=== PATIENT | male | born 1980 | race Caucasian/White ===

== ENCOUNTER 2024-07-23 08:27 | Outpatient (AMB) | payer BC, SELFPAY ==
--- NOTE | 2024-07-23 08:32 | MHC.OFFWIV ---
Intake Vital Signs 07/23/24 08:34 Height 6 ft Weight 198 lb BMI 26.9 BP 130/80 Blood Pressure Location Lt brachial Position Sitting Respiration 16 Pulse 83 Pulse Source Pulse Oximeter Temp 97.8 F Temp Source Oral Pulse Oximetry (%) 98 Oxygen Delivery Method Room Air Intake Visit Reasons: EP Pain/discomfort lower abd, pain rt testicle Intake Note: Pt is here today c/o Rt testicle pain and lower abdominal discomfort x2mo. Allergies No Known Allergies Allergy (Verified 07/23/24 08:34) HPI EP Pain/discomfort lower abd, pain rt testicle HPI Details this is a 44-year-old male patient who presents to the walk-in clinic today with a nearly 2 month history of right scrotal pain and occasional radiation into his right lower quadrant. This began without any inciting events. No testicular trauma. No new sexual partners. Denies risk for STI. Reports tenderness at the top posterior aspect of his right testicle, and in the tube that leads upward. Denies any dysuria or bowel problems. Denies any pain or blood with ejaculation. Reports the abdominal pain as squeezing. Denies fever/chills. [facility] Medical History Overweight (BMI 25.0-29.9) Surgical History No pertinent past surgical history Family History Father No problems noted. Mother No problems noted. Sister In good health Sister In good health Daughter In good health Social History Alcohol intake: current Alcohol intake frequency: a few times a month Alcohol type: beer and hard liquor Review of Systems Const All systems reviewed & are unremarkable except as noted in HPI and below Physical Exam Vital Signs: Last Vital Signs Temp 97.8 F 07/23/24 08:34 Pulse 83 07/23/24 08:34 Resp 16 07/23/24 08:34 BP 130/80 07/23/24 08:34 Pulse Ox 98 07/23/24 08:34 Oxygen Delivery Method Room Air 07/23/24 08:34 BMI result Body Mass Index 26.9 Const General: cooperative, healthy appearing, comfortable and no acute distress GI Inspection: Yes normal to inspection Palpation (GI): Soft to palpation (nontender to palp) and No hepatosplenomegaly present Auscultation: normal bowel sounds General: Yes no CVA tenderness Penis: normal penis Scrotum: testes descended bilaterally and Varicocele present on the right Testes: epididymal tenderness on the right Back/Spine/Pelvis Back: no CVA tenderness Skin General skin exam: no rashes or lesions noted Extrem General: Yes no clubbing, cyanosis or edema Psych Appearance: grossly normal Mental Status: mental status grossly normal Speech and movement: Normal speech and movement present Results AMB Urinalysis, Automated UA Leukoctes 0 Juan/uL Last Edit by Allan Johnson CMA on 07/23/24 09:29 UA Nitrite Negative Last Edit by Allan Johnson CMA on 07/23/24 09:29 UA Urobilinogen 0.2 mg/dL Last Edit by Allan Johnson CMA on 07/23/24 09:29 UA Protein 0 mg/dL Last Edit by Allan oJhnson CMA on 07/23/24 09:29 UA pH 6.0 Last Edit by Allan Johnson CMA on 07/23/24 09:29 UA Blood 0 Artie/uL Last Edit by Allan Johnson CMA on 07/23/24 09:29 UA Specific [place] 1.005 Last Edit by Allan Johnson CMA on 07/23/24 09:29 UA Ketone Positive Last Edit by Allan Johnson CMA on 07/23/24 09:29 UA Bilirubin 0 mg/dL Last Edit by Allan Johnson CMA on 07/23/24 09:29 UA Glucose 0 mg/dL Last Edit by Allan Johnson CMA on 07/23/24 09:29 Assessment & Plan Assessment & Plan (1) Pain in right testicle: Code(s): N50.811 - Right testicular pain Plan: Possible varicocele on the right side versus epididymitis, however less risk for this. Clean catch was negative. Denies STI risk. Abdominal assessment was unremarkable. He is between PCPs at the moment and is hoping to get established with PCP with [facility] office. I will refer him to urology. In the meantime I will start him on Bactrim to see if this provides any benefit. Reviewed indications, use, possible side effects of this. We reviewed that if symptoms worsen, he should go to the emergency department for evaluation. All questions were answered and patient verbalizes understanding and agrees to plan. Orders: Orders AMB Urinalysis Automated Today Z13.9 - Encounter for screening, unspecified Referrals Urology Referral N50.811 - Right testicular pain Medications: New sulfamethoxazole-trimethoprim 800-160 mg 1 tab PO BID 7 days 14 tabs 0RF N50.811 - Right testicular pain Coding Level of Care Code Est Pt Level 4 (33761) Diagnoses Pain in right testicle N50.811
[2024-07-23 08:34] VITALS: BP 130/80; PULSE 83; RESP 16; TEMP 36.6; O2SAT 98; BMI 26.9
== END 2024-07-23 09:54 | disposition home or self-care (01) ==
PROVIDERS: PCP Internal Medicine; Visit Provider Nurse Practitioner Family
DX: N50.811 Right testicular pain (principal); Z13.9 Encounter for screening, unspecified

== ENCOUNTER → 2024-07-23 08:27 | Outpatient (BNVA) | payer BC, SELFPAY | PROVIDERS: PCP Internal Medicine; Visit Provider Nurse Practitioner Family | DX: N50.811 Right testicular pain (principal) | CPT/HCPCS: 81003 ==

== ENCOUNTER 2024-08-25 14:04 | Outpatient (AMB) | payer BC, SELFPAY ==
--- NOTE | 2024-08-25 14:29 | A.OFFPC_ITS ---
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 Accompanied by: Self / Same As Patient Allergies No Known Allergies Allergy (Verified 08/25/24 15:28) Medication List - Last Reconciled 08/25/24 by Deedee Nick PA-C multivitamin 1 tab PO DAILY Tobacco use date assessed: 08/25/24 Dental Screening Dental Screen Date: 08/25/24 Did you have a dental visit in the last 12 months?: Yes Did you have a dental problem in the last 6 months where you did not have access to dental care?: No Was dental information given to patient?: Patient has dentist HPI Establish Care HPI Details The patient is a 44-year-old male presenting to establish a new primary care provider and for new patient appointment along with an annual physical examination. Patient presents with right testicular pain persisting for two months. The character of the pain is described as slight pressure with occasional pinching sensation, aggravating when wearing a belt around the affected area. The patient has previously been on Bactrim, following which he experienced loose stools. There are no systemic symptoms or noticeable changes in the testicular region. The patient has a family history of breast cancer but none for testicular cancer. Social History - Employment: Works in a [employer], [employer] mostly desk work. - Physical Activity: Engages in gardenin g and manual tasks at home. - Family Status: Single, not currently s exually active, previously with women. - Family History: Father had breast canc er; possible maternal grandmother's breast cancer. - No current use of recreational drugs o r tobacco. [facility] Medical History (Updated 08/25/24 @ 15:35 by Deedee Nick PA-C) Overweight with body mass index (BMI) of 27 to 27.9 in adult Loose stools Family history of cataracts Family history of breast cancer Right calf pain Right lower quadrant abdominal pain Establishing care with new doctor, encounter for Right testicular pain Overweight (BMI 25.0-29.9) Surgical History No pertinent past surgical history Family History Father Breast cancer Mother Cataract Sister In good health Sister In good health Daughter In good health Maternal Grandmother Breast cancer Social History Housing: House Alcohol intake: current Alcohol intake frequency: holidays/special occasions only Patient Tobacco Use Status: Former Tobacco user Tobacco use type: Cigarette e-Cigarette/Vaping Use: Currently Using service: No Current occupational status: employed Cognitive needs: No Hearing needs: No Vision needs: Yes (rx glasses) Questionnaire PHQ-9 Over the last 2 weeks, how often have you been bothered by any of the following problems? 1. Little interest or pleasure in doing things: not at all 2. Feeling down, depressed, or hopeless: not at all 3. Trouble falling or staying asleep, or sleeping too much: not at all 4. Feeling tired or having little energy: not at all 5. Poor appetite or overeating: not at all 6. Feeling bad about yourself - or that you are a failure or have let yourself or your family down: not at all 7. Trouble concentrating on things, such as reading the newspaper or watching television: not at all 8. Moving or speaking so slowly that other people could have noticed. Or the opposite - being so fidgety or restless that you have been moving around a lot more than usual: not at all 9. Thoughts that you would be better off or of hurting yourself in some way: not at all Total score: 0 Depression Screening Interpretation: Negative Depression Screening Done: Yes 01875 - PHQ-9 Billing: Yes Source: Developed by Drs. Marcin Roe, Heidy Rivera, Sean Ling and colleagues, with an educational fara from [employer]. Thrive Questionnaire Date Thrive assessed: 08/25/24 I am a: Patient What is your living situation today?: I have a steady place to live Within the past 12 months, did the food you bought not last and you didn't have the money to get more?: Never true Within the past 12 months, did you worry whether your food would run out before you got money to buy more?: Never true Do you have trouble paying for medicines?: No Do you have trouble getting transportation to medical appointments?: No Do you have trouble paying your heating and electricity bill?: No Do you have trouble taking care of your child, family member or friend?: No Do you have trouble with day-to-day activities such as bathing, preparing meals, shopping, managing finances, etc.?: No Are you currently unemployed and looking for a job?: No Are you interested in more education?: No Please select the resources that you would like help with: None THRIVE Score: 0 AUDIT C Alcohol Use Questionnaire (AUDIT-C) 1. How often do you have a drink containing alcohol?: 2-4 times a month 2. How many drinks containing alcohol do you have on a typical day when you are drinking?: 1 or 2 3. How often do you have six or more drinks on one occasion?: Never Total Score: 2 Score Reviewed/Action Taken: No SHAVONNE-7 AMB Questionnaire SHAVONNE-7 Date SHAVONNE - 7 assessed: 08/25/24 Feeling nervous, anxious, or on edge: 0 = Not at all Not being able to stop or control worryin = Not at all Worrying too much about different things: 0 = Not at all Trouble relaxin = Not at all Being so restless that it is hard to sit still: 0 = Not at all Becoming easily annoyed or irritable: 0 = Not at all Feeling afraid as if something awful might happen: 0 = Not at all Total SHAVONNE-7 score (0-4 normal; 5-9 mild; 10-14 moderate; 15-21 severe): 0 Source: Developed by Drs. Marcin Roe, Heidy Rivera, Sean Ling and colleagues, with an educational fara from [employer]. SHAVONNE-7 Assessment Billing SHAVONNE-7 Assessment Tool: SHAVONNE-7 Assessment 20913 Review of Systems Const Details: - Genitourinary: Reports right testicular pain. Denies abnormal penile discharge or swelling of testicles. - Gastrointestinal: Reports loose stools post-antibiotics. Denies nausea, vomiting, green or mucusy stool. - General: Denies fever and abdominal pain. Physical exam (Primary Care) Vital Signs: Last Vital Signs Temp 97.7 F 08/25/24 14:30 Pulse 82 08/25/24 14:30 Resp 14 08/25/24 14:30 BP 132/82 08/25/24 14:30 Pulse Ox 99 08/25/24 14:30 Oxygen Delivery Method Room Air 08/25/24 14:30 Care Plan Goal for BP management: <140/90 at Goal BMI result Body Mass Index 27.3 BMI Assessment/Plan discussion: High BMI High, discussed plan: lifestyle, weight reduction, dietary, physical activity and alcohol moderation Tobacco/Smoking Status: Tobacco use Status Tobacco use date assessed 08/25/24 08/25/24 14:33 Patient Tobacco Use Status Former Tobacco user 08/25/24 14:43 Tobacco use type Cigarette 08/25/24 14:43 e-Cigarette/Vaping Use Currently Using 08/25/24 14:43 PHQ-9: PHQ-9 Score PHQ-9: Total score 0 08/25/24 14:43 Depression Screening Interpretation: Negative Thrive Assessment: Date of Thrive Assessment Date Thrive assessed 08/25/24 08/25/24 14:33 Const Other: Appearance: Alert. Oriented X3. No acute distress. Head: Normal external exam. Normocephalic. Atraumatic. Eyes: Pupils are equal, round, and reactive to light. Extraocular movements intact. Conjunctiva and sclera normal. Eyelids normal. Ears: External auditory canal normal. Tympanic membranes normal. Throat: Pharynx normal. Uvula midline. Moist mucous membranes. Neck: Normal inspection. Neck supple. Full range of motion. No adenopathy. Thyroid Normal. No meningeal signs. No neck mass noted. Cardiovascular: Normal heart rate and rhythm. Heart sound normal. No murmurs noted. Pulses normal throughout. Respiratory: No respiratory distress. Painless inspiration. Breath sounds normal. No wheezes/rales/rhonchi noted. Chest nontender. No accessory muscle usage noted or decreased air movement noted. Abdomen: Soft and nontender. Bowel sounds normal in all 4 quadrants. No distention noted. No organomegaly noted. No visible injury noted. Patient reports intermittent right lower quadrant abdominal tenderness/right groin/inguinal area although on exam there is no tenderness. No obvious hernias or abnormalities noted at this time. Gu: Patient has a normal testicular exam has mild tenderness to the right testicle although no masses or abnormalities noted. No rashes are noted. No abnormal discharge. No lymphadenopathy noted. No obvious hernias noted. Back: No costovertebral angle tenderness. Full range of motion noted. Skin: Skin warm and dry. Normal skin color. Normal skin turgor. No rashes/lesions/lacerations noted. Extremities: No lower extremity edema. Right calf pain noted, with visible veins. Otherwise all other extremities exhibit normal range of motion nontender. Neuro: Oriented X 3. No motor deficit. No sensory deficit. Reflexes normal. Results Reviewed Results Reviewed: - Tests and Diagnostics: - Urine analysis: Positive for ketones, negative for nitrites. - Blood Tests: Negative for hepatitis B, hepatitis C, HIV, RPR. Coding Level of Care Code Est Pt Level 4 (16911) Est Pt Prev Care 40-64y(94095) Diagnoses Establishing care with new doctor, encounter for Z76.89 Annual physical exam Z00.00 Right testicular pain N50.811 Loose stools R19.5 Family history of breast cancer Z80.3 Overweight with body mass index (BMI) of 27 to 27.9 in adult E66.3; Z68.27 Right calf pain M79.661 Right lower quadrant abdominal pain R10.31 Additional Codes PHQ-9 - 54405 - PHQ-9 Billing: Yes ([id number]) SHAVONNE-7 Assessment Billing - SHAVONNE-7 Assessment Tool: SHAVONNE-7 Assessment 11805 ([id number]) Assessment & Plan Assessment & Plan (1) Establishing care with new doctor, encounter for: Code(s): Z76.89 - Persons encountering health services in other specified circumstances Category: Medical Plan: Patient establishing care with a new primary care provider his old prior primary care provider was Dr. Pop although he has not seen him in over 3 years. (2) Annual physical exam: Code(s): Z00.00 - Encounter for general adult medical examination without abnormal findings Category: Medical (3) Right testicular pain: Code(s): N50.811 - Right testicular pain Category: Medical Plan: Evaluation includes scrotal ultrasound and consultation for potential varicocele versus epididymitis versus another abnormality. Also concerned due to the patient's intermittent right lower quadrant pain although no pain on exam. Abdomen/Pelvic CT scan is also ordered to assess related structures. Will reassess after labs and imaging are performed and patient will return in 2 months. Referral to Urology also placed at this time. (4) Loose stools: Code(s): R19.5 - Other fecal abnormalities Category: Medical Plan: Started after taking Bactrim. Denies mucousy or yellow stools. Denies history of C diff. Will send for H pylori and C diff infection. Will continue to monitor. (5) Family history of breast cancer: Code(s): Z80.3 - Family history of malignant neoplasm of breast Category: Medical Plan: Father and maternal grandmother had breast cancer. Patient does not have any breast related complaints or lumps on exam at this time. (6) Overweight with body mass index (BMI) of 27 to 27.9 in adult: Code(s): E66.3 - Overweight; Z68.27 - Body mass index [BMI] 27.0-27.9, adult Category: Medical Plan: Patient to improve diet and exercise regimen. Condition is chronic and stable continue to monitor. (7) Right calf pain: Code(s): M79.661 - Pain in right lower leg Category: Medical Plan: Will order venous duplex ultrasound of right lower extremity to evaluate for possible DVT. Most likely related to varicose veins versus musculature in nature. Condition is chronic and stable continue to monitor. (8) Right lower quadrant abdominal pain: Code(s): R10.31 - Right lower quadrant pain Category: Medical Plan: Evaluation includes scrotal ultrasound and consultation for potential varicocele versus epididymitis versus another abnormality. Also concerned due to the patient's intermittent right lower quadrant pain although no pain on exam. Abdomen/Pelvic CT scan is also ordered to assess related structures. Will reassess after labs and imaging are performed and patient will return in 2 m [facility]. Referral to Urology also placed at this time. Plan Plan Patient was informed and verbally consented to the use of an ambient scribe for clinic note documentation during this visit. 1. Right Testicular Pain Evaluation includes ultrasound and consultation for potential varicocele. Pelvic CT scan is also ordered to assess related structures. 2. Varicocele Suspected varicocele on the right side requires confirmation through ultrasound and possibly contributes to the patient's discomfort. 3. Loose Stools Post Antibiotics Continued monitoring advised, with suggestions for further tests if symptoms do not resolve. 4. Family History Of Breast Cancer Patient's family history of breast cancer is recorded, with relevance to ongoing health surveillance. I informed the patient that his right testicular pain and suspected varicocele warranted further evaluation through imaging studies. The ultrasound aims to confirm a varicocele and assess for any infection, while the CT scan will review potential abdominal contributions to his symptoms. We discussed that a varicocele can cause discomfort due, in part, to dilated scrotal veins, and intervention, if necessary, could involve surgical options. The loose stools following antibiotics are likely a side effect, but symptoms will be monitored to ensure resolution. The patient's negative results for hepatitis B, hepatitis C, and HIV provide reassurance. We talked about the family history of breast cancer, emphasizing the importance of awareness for personal health monitoring. I advised regular follow-ups to reassess his symptoms or consider additional evaluation should new symptoms arise. Future imaging studies were recommended on an urgent basis. Follow-up visits within two months were suggested for re- evaluation. Orders: Orders Liver Panel Today Z00.00 - Encounter for general adult medical examination without abnormal findings Hemoglobin A1c Today Z00.00 - Encounter for general adult medical examination without abnormal findings C Reactive Protein Today Z00.00 - Encounter for general adult medical examination without abnormal findings PSA,Total (Free>4and<10) Today Z00.00 - Encounter for general adult medical examination without abnormal findings Erythrocyte Sedimentation Rate Today Z00.00 - Encounter for general adult medical examination without abnormal findings Comprehensive Met. Panel Today Z00.00 - Encounter for general adult medical examination without abnormal findings CT NG by PCR Today N50.811 - Right testicular pain, Z76.89 - Persons encountering health services in other specified circumstances US venous duplex LE RT Today M79.661 - Pain in right lower leg CDiff Gene PCR Today R10.9 - Unspecified abdominal pain Complete Blood Count Auto Diff Today Z00.00 - Encounter for general adult medical examination without abnormal findings Lipid Panel Today Z00.00 - Encounter for general adult medical examination without abnormal findings Vitamin B12 and Folate Today Z00.00 - Encounter for general adult medical examination without abnormal findings Vitamin D 25-OH Total Today Z00.00 - Encounter for general adult medical examination without abnormal findings Magnesium Today Z00.00 - Encounter for general adult medical examination without abnormal findings US scrotum doppler Today N50.811 - Right testicular pain, R10.31 - Right lower quadrant pain CT abdomen pelvis w IV con Today N50.811 - Right testicular pain, R10.31 - Right lower quadrant pain H pylori Ag Stool Today R10.31 - Right lower quadrant pain Referrals Urology Referral N50.811 - Right testicular pain Patient Instructions: - Schedule and undergo the ultrasound for the right testicle and CT scan of the abdomen and pelvis. - Obtain blood work at your earliest convenience; fasting is recommended for cholesterol testing. - Monitor your condition and alert us if worsened stomach pain, unusual testicular changes, or prolonged loose stools occur. - Follow up in two months for evaluation of progress and potential management adjustment. - Maintain awareness of family history concerning breast cancer and discuss any concerns in future visits. - Drink water before fasting labs and contact us if you need further guidance on your instructions.
[2024-08-25 14:30] VITALS: BP 132/82; PULSE 82; RESP 14; TEMP 36.5; O2SAT 99; BMI 27.3
--- OUTSIDE RECORDS SUMMARY | 2024-08-25 16:07 | XMS_ITS ---
Author Name [facility] Organization Unknown History of Medication Use Medication Directions Dispensed Refills Start Date End Date Stat No known medications No known medications active Encounters Encounter Type Encounter Reason Primary Diagnosis Location Date Ambulatory Titers Encounter for screening for other viral diseases [facility] 08/13/2024 Care Team Organization Name Specialty Phone Email Start Date End Da te [facility] NO PCP Primary Care 08/13
== END 2024-08-25 15:11 | disposition home or self-care (01) ==
LOC: HO.HMCSH 14:04
PROVIDERS: PCP Internal Medicine; Visit Provider Physician Assistant Medical
DX: Z00.00 Encounter for general adult medical examination without abnormal findings (principal); N50.811 Right testicular pain; E66.3 Overweight; M79.661 Pain in right lower leg; Z68.27 Body mass index [BMI] 27.0-27.9, adult; R19.5 Other fecal abnormalities; R10.31 Right lower quadrant pain; Z76.89 Persons encountering health services in other specified circumstances; Z80.3 Family history of malignant neoplasm of breast

== ENCOUNTER → 2024-08-25 14:04 | Outpatient (BNVA) | payer BC, SELFPAY | PROVIDERS: PCP Internal Medicine; Visit Provider Physician Assistant Medical | DX: Z00.00 Encounter for general adult medical examination without abnormal findings (principal); N50.811 Right testicular pain; R19.5 Other fecal abnormalities; E66.3 Overweight; M79.661 Pain in right lower leg; R10.31 Right lower quadrant pain; Z68.27 Body mass index [BMI] 27.0-27.9, adult; Z80.3 Family history of malignant neoplasm of breast; Z76.89 Persons encountering health services in other specified circumstances | CPT/HCPCS: 96127 ==

== ENCOUNTER 2024-08-26 07:39 | Outpatient (REF) | payer BC, SELFPAY ==
[2024-08-26 07:56] LABS: MANUAL DIFF FLAG NO
[2024-08-26 08:17] LABS: Basophils Percent Auto 0.7 % (0-2); Eosinophils Percent Auto 0.5 % (0-4); Hematocrit 43.3 % (42.0-52.0); Hemoglobin 14.7 g/dl (14.0-18.0); Imm Gran Abs Auto 0.02 X10*3/uL (0.00-0.03); Imm Gran Pct Auto 0.4 % (0.0-0.4); Lymphocytes Absolute Auto 1.6 X10*3/uL (1.2-4.9); Lymphocytes Percent Auto 28.2 % (20-40); Mean Corpuscular HGB Conc 33.9 g/dl (31.0-36.0); Mean Corpuscular Hemoglobin 29.7 pg (27.0-33.0); Mean Corpuscular Volume 87.5 fL (80.0-98.0); Mean Platelet Volume 9.5 fL (9.4-12.4); Monocytes Absolute Auto 0.5 X10*3/uL (0.1-1.2); Monocytes Percent Auto 8.5 % (2-11); Neutrophils Absolute Auto 3.4 x10*3/uL (2.0-8.3); Neutrophils Percent Auto 61.7 % (45-73); Platelet Count 255 X10*3/uL (160-400); Red Blood Count 4.95 X10*6/uL (4.60-5.80); Red Cell Distribution Width 12.3 % (11.0-16.0); White Blood Count 5.6 X10*3/uL (4.8-10.8)
[2024-08-26 08:24] LABS: Estimated Average Glucose 103 mg/dL; Hemoglobin A1c % 5.2 % (<6.0)
[2024-08-26 08:50] LABS: Alanine Aminotransferase 22 U/L (0-40); Albumin Level 5.2 g/dL (3.5-5.0); Alkaline Phosphatase 55 U/L (39-117); Anion Gap 12 (12-20); Aspartate Amino Transferase 23 U/L (5-37); Bilirubin Direct 0.1 mg/dL (0.0-0.5); Bilirubin Total 0.4 mg/dL (0.0-1.0); Blood Urea Nitrogen 16 mg/dL (9-16); C Reactive Protein 0.11 mg/dL (< or = 0.50); Carbon Dioxide 24 mmol/L (22-29); Chloride 108 mmol/L (96-108); Cholesterol 145 mg/dL (<200); Estimated Glomerular Filt Rate > 60; Glucose Random 97 mg/dL (60-115); HDL Cholesterol 40 mg/dL (>40); LDL Cholesterol Calculated 94 mg/dL (<100); Magnesium 2.1 mg/dL (1.6-2.6); Potassium 4.3 mmol/L (3.3-5.1); Sodium 140 mmol/L (135-145); Total Protein 7.1 g/dL (6.5-8.0); Triglycerides 55 mg/dL (<150)
[2024-08-26 08:58] LABS: Erythrocyte Sedimentation Rate 2 MM/HR (0-15)
[2024-08-26 09:07] LABS: Vitamin D 25-OH Total 28.9 ng/mL (>30)
[2024-08-26 09:08] LABS: PSA,Total (Free>4and<10) 2.13 ng/mL (0.00-4.00)
[2024-08-26 09:22] LABS: Folate 7.4 ng/mL (> or = 4.0); Vitamin B12 396 pg/mL (200-900)
[2024-08-26 11:55] LABS: CT PCR NOT DETECTED (Not Detect.); NG PCR NOT DETECTED (Not Detect.)
== END 2024-08-26 07:40 | disposition home or self-care (01) ==
LOC: HO.LAB 07:39
PROVIDERS: PCP Physician Assistant Medical; Visit Provider Physician Assistant Medical
DX: Z00.00 Encounter for general adult medical examination without abnormal findings (principal); Z12.5 Encounter for screening for malignant neoplasm of prostate; Z13.6 Encounter for screening for cardiovascular disorders; Z13.1 Encounter for screening for diabetes mellitus; N50.811 Right testicular pain; Z76.89 Persons encountering health services in other specified circumstances; Z20.2 Contact with and (suspected) exposure to infections with a predominantly sexual mode of transmission
CPT/HCPCS: 80053; 80061; 82248; 82306; 82607; 82746; 83036; 83735; 84153; 85025; 85652; 86140; 87491; 87591

== ENCOUNTER 2024-09-01 14:17 | Outpatient (REF) | payer BC, SELFPAY ==
--- NOTE | ~2024-09-01 | US_ITS ---
EXAMINATION: US TRIPLEX LOWER EXTREMITY, RIGHT CLINICAL INFORMATION: Right leg pain, notably in right posterior mid calf COMPARISON: None available. TECHNIQUE: Color-flow triplex imaging with spectral analysis and compression Doppler were performed on the right lower extremity. FINDINGS: Respiratory variation, normal compression and augmented flow are noted throughout the right lower extremity. The visualized common femoral vein, superficial femoral vein, profunda femoral vein, popliteal vein and midcalf peroneal and posterior tibial venous segments show no evidence of deep venous thrombosis. There is no Martinez's cyst. In the region of pain in the right posterior mid calf, there is a bulging superior saphenous varicosity measuring 0.3 cm. It is compressible. US/US venous duplex LE RT IMPRESSION: No evidence of deep venous thrombosis involving the right lower extremity. Electronically signed by: John Alvarado MD 09/01/2024 03:17 PM EDT
== END 2024-09-01 14:18 | disposition home or self-care (01) ==
LOC: HO.US 14:17
PROVIDERS: PCP Physician Assistant Medical; Visit Provider Physician Assistant Medical
DX: M79.661 Pain in right lower leg (principal)
CPT/HCPCS: 93971

== ENCOUNTER → 2024-09-01 14:18 | Outpatient (BNV) | payer BC, SELFPAY | PROVIDERS: PCP Physician Assistant Medical; Visit Provider Radiology Diagnostic Radiology | DX: M79.604 Pain in right leg (principal) | CPT/HCPCS: 93971 ==

== ENCOUNTER 2024-09-21 08:20 | Outpatient (REF) | payer BC, SELFPAY ==
--- NOTE | ~2024-09-21 | CT_ITS ---
EXAMINATION: CT ABDOMEN AND PELVIS WITH CONTRAST CLINICAL INFORMATION: Right lower quadrant pain. COMPARISON: None available. TECHNIQUE: Multidetector volumetric images were obtained from the superior aspect of the liver through the pubic symphysis following administration 85 mL of Omnipaque 350 intravenous contrast. Sagittal and coronal reformatted images were obtained on the technologist's workstation. Oral contrast: [address] examination was performed using dose optimization techniques as appropriate, variously including the following: *Automated exposure control *Adjustment of mA and/or kV according to patient size (this includes techniques or standardized protocols for targeted exams where dose is matched to indication/reason for exam; i.e. extremities or head) *Use of iterative reconstruction technique DLP: 552 mGy centimeter. FINDINGS: LUNG BASES: No acute airspace disease. LIVER, GALLBLADDER, AND BILIARY TREE: Liver measures 15 cm. No focal mass. Portal veins, hepatic veins and intrahepatic portion of the IVC are patent. No pericholecystic fluid collection or gallbladder wall thickening. No intrahepatic or extrahepatic biliary ductal dilatation. PANCREAS: No focal mass. No peripancreatic fluid collection. No main pancreatic ductal dilatation. SPLEEN: 9 cm. No focal lesion. ADRENAL GLANDS: No nodular lesion. KIDNEYS AND URETERS: Subcentimeter cyst, left kidney. No renal mass. No hydronephrosis or gross nephrolithiasis. Normal gas pattern of the renal cortex. BLADDER: Fluid-filled. GASTROINTESTINAL TRACT: Appendix is normal. No intestinal obstruction pattern. No pneumatosis intestinalis. No pneumoperitoneum. No intestinal wall thickening. No ascites. No pneumoperitoneum. No peripheral enhancing fluid collection, peritoneal cavity. ABDOMINAL WALL: Small fat-containing umbilical hernia. LYMPH NODES: No lymphadenopathy, mesenteric or retroperitoneal. VASCULAR: Calcified plaques distal abdominal aorta wall. No aneurysm or dissection, abdominal aorta. PELVIC VISCERA: No enlargement of the prostate gland. . OSSEOUS STRUCTURES: Sacralized vertebra labeled L5. Spina bifida occulta, S1. No acute fracture or gross listhesis. Prominent left transverse processes of L5. No lytic or blastic lesions. CT/CT abdomen pelvis w IV con IMPRESSION: Appendix is normal. Small fat-containing umbilical hernia. Fleischner guidelines were followed. Electronically signed by: Favian Robertson MD 09/21/2024 11:16 AM EDT
--- OUTSIDE RECORDS SUMMARY | 2024-09-21 08:23 | XMS_ITS ---
Author Name [facility] Organization Unknown History of Medication Use Medication [...]
[2024-09-21] MEDS: Barium Sulfate Oral (Mocha) 450 ML ORAL.SUSP 900 ML PO (11:01)
[2024-09-21] MEDS: iohexoL 350 MG/ML 100 ML INFUS..BTL 85 ML IV (11:03)
== END 2024-09-21 08:21 | disposition home or self-care (01) ==
LOC: HO.CT 08:20
PROVIDERS: PCP Physician Assistant Medical; Visit Provider Physician Assistant Medical
DX: R10.31 Right lower quadrant pain (principal); N50.811 Right testicular pain
CPT/HCPCS: 74177; Q9967

== ENCOUNTER → 2024-09-21 08:21 | Outpatient (BNV) | payer BC, SELFPAY | PROVIDERS: PCP Physician Assistant Medical; Visit Provider Radiology Diagnostic Radiology | DX: K42.9 Umbilical hernia without obstruction or gangrene (principal) | CPT/HCPCS: 74177 ==

== ENCOUNTER 2024-10-18 15:29 | Outpatient (REF) | payer BC, SELFPAY ==
--- NOTE | ~2024-10-18 | US_ITS ---
EXAMINATION: US SCROTUM HISTORY: N50.811 - Right testicular pain. COMPARISON: There are no prior studies available for comparison. FINDINGS: Real-time grayscale ultrasound imaging of the scrotum was performed. RIGHT TESTICLE: The right testis measures 5.0 x 2.5 x 3.3 cm and demonstrates normal homogeneous echotexture. No masses are seen. The right testis demonstrates normal color Doppler flow. RIGHT EPIDIDYMIS: Normal in size, shape, and vascularity. There is a cyst in the epididymal head measuring 3 mm in size. LEFT TESTICLE: The left testis measures 5.1 x 2.4 x 3.1 cm and demonstrates normal homogeneous echotexture. No masses are seen. The left testis demonstrates normal color Doppler flow. LEFT EPIDIDYMIS: Normal in size, shape, and vascularity. VARICOCELE: None. HYDROCELE: No significant hydrocele is seen. OTHER COMMENTS: None. US/US scrotum IMPRESSION: 3 mm right epididymal head cyst. Otherwise unremarkable scrotal ultrasound. Electronically signed by: Marcin Ayoub MD 10/19/2024 07:06 AM EDT
== END 2024-10-18 15:30 | disposition home or self-care (01) ==
LOC: HO.US 15:29
PROVIDERS: PCP Physician Assistant Medical; Visit Provider Physician Assistant Medical
DX: N50.811 Right testicular pain (principal)
CPT/HCPCS: 76870

== ENCOUNTER → 2024-10-18 15:31 | Outpatient (BNV) | payer BC, SELFPAY | PROVIDERS: PCP Physician Assistant Medical; Visit Provider Radiology Diagnostic Radiology | DX: N50.3 Cyst of epididymis (principal) | CPT/HCPCS: 76870 ==

== ENCOUNTER 2024-10-20 12:56 | Outpatient (AMB) | payer BC, SELFPAY ==
--- NOTE | 2024-10-20 12:57 | A.OFFVIS_ITS ---
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 Pain occurs primarily when sitting and subsides with movement. Ultrasound indicated a possible epididymal cyst. Intermittent tenderness due to epididymal irritation, common with age. Advised to wear supportive underwear to prevent discomfort from horizontal testicular lie. Urinary Symptoms Review Results - Ultrasound: Possible epididymal cyst on the testicle [facility] Medical History (Updated 08/26/24 @ 11:59 by Deedee Nick PA-C) Vitamin D deficiency Overweight with body mass index (BMI) of 27 to 27.9 in adult Loose stools Family history of cataracts Family history of breast cancer Right calf pain Right lower quadrant abdominal pain Establishing care with new doctor, encounter for Right testicular pain Overweight (BMI 25.0-29.9) Surgical History No pertinent past surgical history Family History Father Breast cancer Mother Cataract Sister In good health Sister In good health Daughter In good health Maternal Grandmother Breast cancer Social History Housing: House Alcohol intake: current Alcohol intake frequency: holidays/special occasions only Patient Tobacco Use Status: Former Tobacco user Tobacco use type: Cigarette e-Cigarette/Vaping Use: Currently Using service: No Current occupational status: employed Cognitive needs: No Hearing needs: No Vision needs: Yes (rx glasses) Review of Systems Const Denies chills and Denies fever(s) Card Reports no additional complaints and Denies syncope Resp Denies cough GI Denies abdominal pain and Denies heartburn Reports as per HPI and Denies change in libido Neuro Denies syncope Psych Denies change in libido Endo Denies change in libido Physical Exam Const General: cooperative, healthy appearing, comfortable and no acute distress Orientation/consciousness: patient oriented x3 HEENT Face and sinus: Yes normal facial exam Mouth: moist mucous membranes Neck Neck: Yes normal visual inspection, Yes full ROM and Yes trachea midline Chest Chest palpation & inspection: normal inspection of the chest Resp Effort & Inspection: normal respiratory effort, able to speak in complete sentences and no respiratory distress GI Inspection: Yes normal to inspection Back/Spine/Pelvis Cervical Spine: normal cervical lordosis Thoracic/Lumbar Spine: thoracic and lumbar spine normal to inspection Skin General skin exam: no rashes or lesions noted Neuro General: patient oriented x3, gait normal, tone normal and moves all extremities Extrem General: Yes normal to inspection and Yes capillary refill normal Assessment & Plan Assessment & Plan (1) Right testicular pain: Code(s): N50.811 - Right testicular pain Category: Medical Plan Plan Patient informed verbally consented to the use of an ambient scribe 1. Epididymal Cyst On The Testicle - Monitor condition; no significant pain reported. - Use supportive underwear to reduce discomfort. 2. Irritation Of The Epididymis - Reassured patient about age-related commonality. - Recommended supportive underwear to prevent irritation. Discussion Notes I discussed with the patient that the ultrasound showed a possible epidermal cyst, which is not concerning at this time. I explained that the irritation of the epididymis is common with age and advised wearing supportive underwear to alleviate discomfort. The patient was reassured and advised to monitor the condition, seeking further evaluation if symptoms worsen. Patient Instructions - Wear supportive underwear to reduce discomfort. - Monitor symptoms and seek further evaluation if pain increases or changes. Patient Instructions: This note is constructed using voice recognition software. While every effort has been made to ensure accuracy sand sifter errors may have been included. Imaging studies, laboratory and physical exam results were discussed and reviewed in detail. No major barriers to patient understanding were identified. An opportunity to ask questions regarding the treatment plan was provided. All questions were answered. The patient expressed understanding and agreement with the above treatment plan. The patient is aware they should contact our office by phone for worsening of their current condition or the appearance of new urologic symptoms. Compliance is encouraged with any medications and followup testing that is ordered. It is a privilege to participate in the urologic care of your patient. If you have any questions or concerns regarding treatment for the above conditions, or other urologic issues, please do not hesitate to contact me. The office telephone contact is [phone]. Sincerely, Dr Alberto Pfeiffer MD, [facility] - Urology Compassionate Specialist Care for the Genitourinary System Coding Level of Care Code New Pt Level 3 (57899) Diagnoses Right testicular pain N50.811
== END 2024-10-20 13:18 | disposition home or self-care (01) ==
LOC: HO.HUSH 12:57
PROVIDERS: PCP Physician Assistant Medical; Visit Provider Urology
DX: N50.811 Right testicular pain (principal)
CPT/HCPCS: 99203

== ENCOUNTER → 2024-10-20 12:56 | Outpatient (BNVA) | payer BC, SELFPAY | PROVIDERS: PCP Physician Assistant Medical; Visit Provider Urology | DX: N50.811 Right testicular pain (principal); N50.3 Cyst of epididymis; K42.9 Umbilical hernia without obstruction or gangrene; N28.1 Cyst of kidney, acquired; E55.9 Vitamin D deficiency, unspecified; I70.90 Unspecified atherosclerosis; L72.9 Follicular cyst of the skin and subcutaneous tissue, unspecified; D22.9 Melanocytic nevi, unspecified; Z13.31 Encounter for screening for depression | CPT/HCPCS: 96127 ==

== ENCOUNTER 2024-10-20 14:13 | Outpatient (AMB) | payer BC, SELFPAY ==
--- NOTE | 2024-10-20 14:12 | A.OFFPC_ITS ---
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 The patient reports persistent testicular pain, which has remained unchanged since the last visit. An ultrasound revealed a small epididymal cyst, and the patient was advised to monitor the condition and use supportive underwear to alleviate discomfort. The patient has an umbilical hernia, which is not currently causing significant discomfort. The hernia was identified during a CT scan, and surgical intervention was discussed as a future option if symptoms worsen. A renal cyst was identified on the left kidney, measuring less than one centimeter. The patient was advised to monitor for any changes in symptoms, such as pain or urinary issues. The patient has a history of vitamin D deficiency, with recent lab results confirming low levels. Dietary intake of vitamin D-rich foods was discussed, and the patient acknowledged inconsistent use of supplements. Calcified plaques were noted in the distal abdominal aorta, likely related to dietary habits. The patient was advised on the potential benefits of aspirin therapy. Multiple skin cysts and moles were observed, with a recommendation for dermatological evaluation due to irregularities in some moles. Social History - Diet: Patient reports poor dietary hab its, despite normal cholesterol levels. - Vitamin intake: Inconsistent use of mu ltivitamins, particularly vitamin D supplements. [facility] Medical History (Updated 10/20/24 @ 15:03 by Deedee Nick PA-C) Preventative health care Calcified atheromatous plaque Renal cyst Umbilical hernia Epididymal cyst Cyst of skin Numerous moles Vitamin D deficiency Overweight with body mass index (BMI) of 27 to 27.9 in adult Loose stools Family history of cataracts Family history of breast cancer Right calf pain Right lower quadrant abdominal pain Establishing care with new doctor, encounter for Right testicular pain Overweight (BMI 25.0-29.9) Surgical History No pertinent past surgical history Family History Father Breast cancer Mother Cataract Sister In good health Sister In good health Daughter In good health Maternal Grandmother Breast cancer Social History Housing: House Alcohol intake: current Alcohol intake frequency: holidays/special occasions only Patient Tobacco Use Status: Former Tobacco user Tobacco use type: Cigarette e-Cigarette/Vaping Use: Currently Using service: No Current occupational status: employed Cognitive needs: No Hearing needs: No Vision needs: Yes (rx glasses) Questionnaire PHQ-9 Over the last 2 weeks, how often have you been bothered by any of the following problems? 1. Little interest or pleasure in doing things: not at all 2. Feeling down, depressed, or hopeless: not at all 3. Trouble falling or staying asleep, or sleeping too much: not at all 4. Feeling tired or having little energy: not at all 5. Poor appetite or overeating: not at all 6. Feeling bad about yourself - or that you are a failure or have let yourself or your family down: not at all 7. Trouble concentrating on things, such as reading the newspaper or watching television: not at all 8. Moving or speaking so slowly that other people could have noticed. Or the opposite - being so fidgety or restless that you have been moving around a lot more than usual: not at all 9. Thoughts that you would be better off or of hurting yourself in some way: not at all Total score: 0 Depression Screening Interpretation: Negative Depression Screening Done: Yes 47820 - PHQ-9 Billing: Yes Source: Developed by Drs. Marcin Roe, Heidy Rivera, Sean Ling and colleagues, with an educational fara from [employer]. Thrive Questionnaire Date Thrive assessed: 08/25/24 I am a: Patient What is your living situation today?: I have a steady place to live Within the past 12 months, did the food you bought not last and you didn't have the money to get more?: Never true Within the past 12 months, did you worry whether your food would run out before you got money to buy more?: Never true Do you have trouble paying for medicines?: No Do you have trouble getting transportation to medical appointments?: No Do you have trouble paying your heating and electricity bill?: No Do you have trouble taking care of your child, family member or friend?: No Do you have trouble with day-to-day activities such as bathing, preparing meals, shopping, managing finances, etc.?: No Are you currently unemployed and looking for a job?: No Are you interested in more education?: No Please select the resources that you would like help with: None THRIVE Score: 0 AUDIT C Alcohol Use Questionnaire (AUDIT-C) 1. How often do you have a drink containing alcohol?: 2-4 times a month 2. How many drinks containing alcohol do you have on a typical day when you are drinking?: 1 or 2 3. How often do you have six or more drinks on one occasion?: Never Total Score: 2 Score Reviewed/Action Taken: No SHAVONNE-7 AMB Questionnaire SHAVONNE-7 Date SHAVONNE - 7 assessed: 08/25/24 Feeling nervous, anxious, or on edge: 0 = Not at all Not being able to stop or control worryin = Not at all Worrying too much about different things: 0 = Not at all Trouble relaxin = Not at all Being so restless that it is hard to sit still: 0 = Not at all Becoming easily annoyed or irritable: 0 = Not at all Feeling afraid as if something awful might happen: 0 = Not at all Total SHAVONNE-7 score (0-4 normal; 5-9 mild; 10-14 moderate; 15-21 severe): 0 Source: Developed by Drs. Marcin Roe, Heidy Rivera, Sean Ling and colleagues, with an educational fara from [employer]. SHAVONNE-7 Assessment Billing SHAVONNE-7 Assessment Tool: SHAVONNE-7 Assessment 50169 Review of Systems Const Details: - Genitourinary: Reports persistent testicular pain. Denies erectile dysfunction or urinary issues. - Gastrointestinal: Denies abdominal pain or changes in bowel habits. All systems reviewed & are unremarkable except as noted in HPI and below Physical exam (Primary Care) Vital Signs: Last Vital Signs Temp 98.2 F 10/20/24 14:13 Pulse 82 10/20/24 14:13 Resp 16 10/20/24 14:13 BP 123/69 10/20/24 14:13 Pulse Ox 99 10/20/24 14:13 Oxygen Delivery Method Room Air 10/20/24 14:13 Care Plan Goal for BP management: <140/90 at Goal BMI result Body Mass Index 27.9 BMI Assessment/Plan discussion: High BMI High, discussed plan: lifestyle, weight reduction, dietary, physical activity and alcohol moderation Tobacco/Smoking Status: Tobacco use Status Tobacco use date assessed 10/20/24 10/20/24 14:17 Patient Tobacco Use Status Former Tobacco user 10/20/24 14:17 Tobacco use type Cigarette 10/20/24 14:17 e-Cigarette/Vaping Use Currently Using 10/20/24 14:17 PHQ-9: PHQ-9 Score PHQ-9: Total score 0 10/20/24 14:17 Depression Screening Interpretation: Negative Thrive Assessment: Date of Thrive Assessment Date Thrive assessed 08/25/24 10/20/24 14:17 Const Other: Appearance: Alert. Oriented X3. No acute distress. Head: Normal external exam. Normocephalic. Atraumatic. Eyes: Pupils are equal, round, and reactive to light. Extraocular movements intact. Conjunctiva and sclera normal. Eyelids normal. Throat: Pharynx normal. Uvula midline. Moist mucous membranes. Neck: Normal inspection. Neck supple. Full range of motion. Cardiovascular: Normal heart rate and rhythm. Heart sound normal. No murmurs noted. Pulses normal throughout. Respiratory: No respiratory distress. Painless inspiration. Breath sounds normal. No wheezes/rales/rhonchi noted. Chest nontender. No accessory muscle usage noted or decreased air movement noted. Abdomen: Soft and nontender. No distention noted. No organomegaly noted. Small fat-containing umbilical hernia noted. Back: Full range of motion noted. Skin: Skin warm and dry. Normal skin color. Normal skin turgor. Numerous moles and cysts noted, some moles appear irregular. Extremities: Extremities exhibit normal range of motion. Neuro: Oriented X 3. No motor deficit. No sensory deficit. Reflexes normal. Results Reviewed Results Reviewed: - Labs: CBC normal, albumin slightly elevated at 5.2, total cholesterol 145 mg/dL, HDL 40 mg/dL, vitamin D low. - Imaging: Ultrasound showed a small epididymal cyst; CT scan revealed a small umbilical hernia and a subcentimeter renal cyst. Coding Level of Care Code Est Pt Level 4 (09473) Complex EM visit Add On G2211 Diagnoses Epididymal cyst N50.3 Umbilical hernia K42.9 Renal cyst N28.1 Vitamin D deficiency E55.9 Calcified atheromatous plaque I70.90 Cyst of skin L72.9 Numerous moles D22.9 [facility] health care Z00.00 Additional Codes SHAVONNE-7 Assessment Billing - SHAVONNE-7 Assessment Tool: SHAVONNE-7 Assessment 87832 ([id number]) PHQ-9 - 89567 - PHQ-9 Billing: Yes ([id number]) Assessment & Plan Assessment & Plan (1) Epididymal cyst: Code(s): N50.3 - Cyst of epididymis Category: Medical Plan: The patient is advised to monitor the epididymal cyst and use supportive underwear to alleviate discomfort. If the cyst becomes painful or increases in size, further evaluation may be necessary. (2) Umbilical hernia: Code(s): K42.9 - Umbilical hernia without obstruction or gangrene Category: Medical Plan: The umbilical hernia is currently asymptomatic, and surgical intervention is not required unless symptoms develop. The patient should monitor for any changes in size or discomfort. (3) Renal cyst: Code(s): N28.1 - Cyst of kidney, acquired Category: Medical Plan: The renal cyst is small and asymptomatic, requiring no immediate intervention. The patient should report any new symptoms such as pain or urinary changes. (4) Vitamin D deficiency: Code(s): E55.9 - Vitamin D deficiency, unspecified Category: Medical Plan: The patient is encouraged to increase dietary intake of vitamin D and consider consistent use of supplements. Follow-up labs may be necessary to reassess vitamin D levels. (5) Calcified atheromatous plaque: Comment: In distal abdominal aorta Code(s): I70.90 - Unspecified atherosclerosis Category: Medical Plan: The presence of calcified plaques suggests atherosclerosis, and the patient is advised to consider aspirin therapy. Lifestyle modifications, including dietary changes, may also be beneficial. (6) Cyst of skin: Code(s): L72.9 - Follicular cyst of the skin and subcutaneous tissue, unspecified Category: Medical Plan: The patient is referred to dermatology for evaluation of skin cysts and moles, particularly those with irregular borders. Regular skin checks are recommended to monitor for any changes. (7) Numerous moles: Code(s): D22.9 - Melanocytic nevi, unspecified Category: Medical Plan: The patient is referred to dermatology for evaluation of skin cysts and moles, particularly those with irregular borders. Regular skin checks are recommended t o monitor for any changes. (8) Preventative health care: Code(s): Z00.00 - Encounter for general adult medical examination without abnormal findi ngs Category: Medical Plan: The patient is advised to undergo a colonoscopy as part of routine screening for colon cancer, starting at age 45. Alternative screening methods such as Cologuard were discussed, but colonoscopy remains the gold standard. Plan Plan Patient was informed and verbally consented to the use of an ambient scribe for clinic note documentation during this visit. 1. Epididymal Cyst The patient is advised to monitor the epididymal cyst and use supportive underwear to alleviate discomfort. If the cyst becomes painful or increases in size, further evaluation may be necessary. 2. Umbilical Hernia The umbilical hernia is currently asymptomatic, and surgical intervention is not required unless symptoms develop. The patient should monitor for any changes in size or discomfort. 3. Renal Cyst The renal cyst is small and asymptomatic, requiring no immediate intervention. The patient should report any new symptoms such as pain or urinary changes. 4. Vitamin D Deficiency The patient is encouraged to increase dietary intake of vitamin D and consider consistent use of supplements. Follow-up labs may be necessary to reassess vitamin D levels. 5. Calcified Plaques In Distal Abdominal Aorta The presence of calcified plaques suggests atherosclerosis, and the patient is advised to consider aspirin therapy. Lifestyle modifications, including dietary changes, may also be beneficial. 6. Multiple Skin Cysts And Moles The patient is referred to dermatology for evaluation of skin cysts and moles, particularly those with irregular borders. Regular skin checks are recommended to monitor for any changes. 7. Preventative Care: Colon Cancer Screening With Colonoscopy The patient is advised to undergo a colonoscopy as part of routine screening for colon cancer, starting at age 45. Alternative screening methods such as Cologuard were discussed, but colonoscopy remains the gold standard. During the visit, we discussed the management of the epididymal cyst, emphasizing the use of supportive underwear and monitoring for changes. The umbilical hernia was reviewed, with surgical options considered if symptoms develop. We also addressed the renal cyst, advising the patient to report any new symptoms. Vitamin D deficiency was discussed, with recommendations for dietary adjustments and potential supplementation. The presence of calcified plaques in the abdominal aorta was noted, and the potential benefits of aspirin therapy were considered. A referral to dermatology was made for evaluation of skin cysts and moles. We discussed colon cancer screening options, with a recommendation for colonoscopy as the preferred method. Orders: Referrals Dermatology Referral D22.9 - Melanocytic nevi, unspecified, L72.9 - Follicular cyst of the skin and subcutaneous tissue, unspecified Patient Instructions: - Monitor the epididymal cyst for changes in size or discomfort. - Use supportive underwear to alleviate testicular discomfort. - Observe the umbilical hernia for any changes in size or symptoms. - Report any new symptoms related to the renal cyst, such as pain or urinary changes. - Increase dietary intake of vitamin D and consider taking supplements regularly. - Consider aspirin therapy for calcified plaques in the abdominal aorta, and make dietary changes as needed. - Schedule a dermatology appointment for evaluation of skin cysts and moles. - Plan for a colonoscopy as part of routine colon cancer screening starting at age 45.
[2024-10-20 14:13] VITALS: BP 123/69; PULSE 82; RESP 16; TEMP 36.8; O2SAT 99; BMI 27.9
== END 2024-10-20 14:41 | disposition home or self-care (01) ==
LOC: HO.HMCSH 14:13
PROVIDERS: PCP Physician Assistant Medical; Visit Provider Physician Assistant Medical
DX: N50.3 Cyst of epididymis (principal); K42.9 Umbilical hernia without obstruction or gangrene; N28.1 Cyst of kidney, acquired; E55.9 Vitamin D deficiency, unspecified; I70.90 Unspecified atherosclerosis; L72.9 Follicular cyst of the skin and subcutaneous tissue, unspecified; D22.9 Melanocytic nevi, unspecified; Z00.00 Encounter for general adult medical examination without abnormal findings

== ENCOUNTER 2025-01-27 10:12 | Emergency (ER) | payer BC, SELFPAY ==
--- NOTE | ~2025-01-27 | XR_ITS ---
EXAMINATION: XR CHEST CLINICAL INFORMATION: chest pain COMPARISON: None available. TECHNIQUE: 2 views of the chest were obtained. FINDINGS: The cardiomediastinal silhouette is within normal limits. The lungs are well expanded. There is no focal consolidation, edema, or effusion. No pneumothorax. No acute osseous abnormality. XR/XR chest 2V IMPRESSION: No acute cardiopulmonary findings Electronically signed by: Patric Oviedo MD 01/27/2025 10:53 AM [facility]
--- NOTE | 2025-01-27 10:13 | ECG_ITS ---
Test Reason : chest pain Blood Pressure : */* mmHG Vent. Rate : 103 BPM Atrial Rate : 103 BPM P-R Int : 158 ms QRS Dur : 88 ms QT Int : 332 ms P-R-T Axes : 54 68 45 degrees QTcB Int : 434 ms Sinus tachycardia Otherwise normal ECG When compared with ECG of 11-Jul-2005 18:22, No significant change was found Referred By: Generic ED Physician Electronically Signed By: SAHRA CHRISTENSEN MD
[2025-01-27 10:18] VITALS: BP 137/84; PULSE 107; RESP 18; TEMP 36.3; O2SAT 100; BMI 25.6
--- NOTE | 2025-01-27 10:22 | ED_ITS ---
HPI - General Adult General Chief complaint: Arrhythmia/Palpitations Stated complaint: rapid heart beat Time Seen by Provider: 01/27/25 11:47 Related Data Home Medications ?Medication ?Instructions ?Recorded ?Confirmed multivitamin 1 tab PO DAILY 03/06/20 08/0 09/08 Allergies Allergy/AdvReac Type Severity Reaction Status Date / Time No Known Allergies Allergy Verified 01/27/25 10:22 PMFSH Past Medical History Medical History Preventative health care Calcified atheromatous plaque Renal cyst Umbilical hernia Epididymal cyst Cyst of skin Numerous moles Vitamin D deficiency Overweight with body mass index (BMI) of 27 to 27.9 in adult Loose stools Family history of cataracts Family history of breast cancer Right calf pain Right lower quadrant abdominal pain Establishing care with new doctor, encounter for Right testicular pain Overweight (BMI 25.0-29.9) Surgical History No pertinent past surgical history Family History Family History Father Breast cancer Mother Cataract Sister In good health Sister In good health Daughter In good health Maternal Grandmother Breast cancer Social History Social History Housing: House Alcohol intake: current Alcohol intake frequency: holidays/special occasions only Patient Tobacco Use Status: Former Tobacco user Tobacco use type: Cigarette Smoked in Last 30 Days: Yes e-Cigarette/Vaping Use: Currently Using Use of substances other than those prescribed or required for medical reasons: Yes Substance Use Type: Marijuana Substance Use Frequency: Occasionally Advance Directives: No Advance Directives Information Provided: Yes service: No Current occupational status: employed Cognitive needs: No Hearing needs: No Vision needs: Yes (rx glasses) Physical Exam ED Vital Signs: Vital Signs - 24 hr 01/27/25 10:18 01/27/25 10:47 01/27/25 11:04 Temperature 97.4 F 97.4 F Pulse Rate 107 H 99 95 Respiratory Rate 18 20 18 Blood Pressure 137/84 150/102 H 135/94 H Pulse Oximetry 100 98 96 Oxygen Delivery Method Room Air Room Air Room Air 01/27/25 13:34 Temperature 97.9 F Pulse Rate 60 Respiratory Rate 18 Blood Pressure 113/80 Pulse Oximetry 98 Oxygen Delivery Method Room Air BMI result Body Mass Index 25.6 Course Course Course Narrative: RME: 44 yold male presents to the ED for heart pounding off and on the past 2 days. patient states no recent travel, surgery, or leg swelling. labs, EKG, and chest xray ordered Medical Decision Making Lab Data 01/27/25 10:27 01/27/25 10:27 Labs: Lab Results 01/27/25 01/27/25 Range/Units 10:27 12:30 WBC 6.7 (4.8-10.8) X10*3/uL RBC 5.07 (4.60-5.80) X10*6/uL Hgb 14.9 (14.0-18.0) g/dl Hct 44.4 (42.0-52.0) % MCV 87.6 (80.0-98.0) fL MCH 29.4 (27.0-33.0) pg MCHC 33.6 (31.0-36.0) g/dl RDW 12.5 (11.0-16.0) % Plt Count 251 (160-400) X10*3/uL MPV 9.2 L (9.4-12.4) fL Immature Gran % (Auto) 0.4 (0.0-0.4) % Neut % (Auto) 73.0 (45-73) % Lymph % (Auto) 18.3 L (20-40) % [place] % (Auto) 7.3 (2-11) % Eos % (Auto) 0.4 (0-4) % Baso % (Auto) 0.6 (0-2) % Lymph # (Auto) 1.2 (1.2-4.9) X10*3/uL [place] # (Auto) 0.5 (0.1-1.2) X10*3/uL Eos # (Auto) 0.0 (0.0-0.4) X10*3/uL Baso # (Auto) 0.0 (0.0-0.2) X10*3/uL Abs Immat Gran (auto) 0.03 (0.00-0.03) X10*3/uL Absolute Neuts (auto) 4.9 (2.0-8.3) x10*3/uL Absolute Nucleated RBC 0.000 (0.0-0.012) X10*3/uL Nucleated RBC % (auto) 0.0 (0.0-0.2) /100WBC PT 12.0 (11.2-13.5) SEC INR 1.0 (0.9-1.1) APTT 32.0 (26.7-34.1) SEC D-Dimer High Sensitivty < 150 NG/ML Sodium 143 (135-145) mmol/L Potassium 4.0 (3.3-5.1) mmol/L Chloride 109 H (96-108) mmol/L Carbon Dioxide 25 (22-29) mmol/L Anion Gap 13 (12-20) BUN 12 (9-16) mg/dL Creatinine 0.88 (0.5-1.4) mg/dL Estim Creat Clear Calc 117.5 Estimated GFR > 60 Random Glucose 96 (60-115) mg/dL Calcium 9.3 (8.4-10.2) mg/dL Magnesium 2.0 (1.6-2.6) mg/dL Total Bilirubin 0.6 (0.0-1.0) mg/dL AST 19 (5-37) U/L ALT 23 (0-40) U/L Alkaline Phosphatase 66 (39-117) U/L Troponin I High Sens < 2.7 < 2.7 (<3.5-35.0) ng/L NT-Pro-B Natriuret Pep 24.5 (<300) pg/mL Total Protein 7.3 (6.5-8.0) g/dL Albumin 5.2 H (3.5-5.0) g/dL Discharge Plan Discharge Clinical Impression: Heart palpitations Patient Disposition: Home, Self-Care Instructions: Heart Palpitations (ED) Prescriptions: No Action multivitamin Tablet 1 tab PO DAILY Referrals: Deedee Nick PA-C [Primary Care Provider, Internal Medicine] Stand Alone Forms: Work/School Release Print Language: Slovak
[2025-01-27 10:33] LABS: MANUAL DIFF FLAG NO
[2025-01-27 10:35] LABS: Hematocrit 44.4 % (42.0-52.0); Hemoglobin 14.9 g/dl (14.0-18.0); Imm Gran Abs Auto 0.03 X10*3/uL (0.00-0.03); Imm Gran Pct Auto 0.4 % (0.0-0.4); Lymphocytes Absolute Auto 1.2 X10*3/uL (1.2-4.9); Mean Corpuscular HGB Conc 33.6 g/dl (31.0-36.0); Mean Corpuscular Hemoglobin 29.4 pg (27.0-33.0); Mean Corpuscular Volume 87.6 fL (80.0-98.0); NRBC Abs Auto 0.000 X10*3/uL (0.0-0.012); NRBC Pct Auto 0.0 /100WBC (0.0-0.2); Platelet Count 251 X10*3/uL (160-400); Red Blood Count 5.07 X10*6/uL (4.60-5.80); White Blood Count 6.7 X10*3/uL (4.8-10.8)
[2025-01-27 10:44] LABS: INTERNATIONAL NORM RATIO 1.0 (0.9-1.1); Prothrombin Time 12.0 SEC (11.2-13.5)
[2025-01-27 10:47] VITALS: BP 150/102; PULSE 99; RESP 20; TEMP 36.3; O2SAT 98
[2025-01-27 10:47] LABS: Partial Thromboplastin Time 32.0 SEC (26.7-34.1)
[2025-01-27 11:01] LABS: NT Pro B Type Natriuretic Pept 24.5 pg/mL (<300)
[2025-01-27 11:04] VITALS: BP 135/94; PULSE 95; RESP 18; O2SAT 96
[2025-01-27 11:04] LABS: Troponin-I High Sensitivity < 2.7 ng/L (<3.5-35.0)
[2025-01-27 11:10] LABS: Alanine Aminotransferase 23 U/L (0-40); Albumin Level 5.2 g/dL (3.5-5.0); Alkaline Phosphatase 66 U/L (39-117); Anion Gap 13 (12-20); Aspartate Amino Transferase 19 U/L (5-37); Blood Urea Nitrogen 12 mg/dL (9-16); Calcium 9.3 mg/dL (8.4-10.2); Carbon Dioxide 25 mmol/L (22-29); Chloride 109 mmol/L (96-108); Creatinine Clr Calc Pharmacy 117.5; Estimated Glomerular Filt Rate > 60; Potassium 4.0 mmol/L (3.3-5.1); Sodium 143 mmol/L (135-145); Total Protein 7.3 g/dL (6.5-8.0)
--- NOTE | 2025-01-27 11:10 | PC.NURSE ---
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
--- NOTE | 2025-01-27 12:01 | ED_ITS ---
HPI - Arrhythmia/Palpitations General Chief Complaint: Arrhythmia/Palpitations Stated Complaint: rapid heart beat Time Seen by Provider: 01/27/25 11:47 Source: patient Mode of arrival: ambulatory Limitations: no limitations History of Present Illness ED Provider: DR. Walker HPI narrative: 44-year-old male otherwise healthy came in for evaluation of feeling palpitation and feeling the whole body is pulsating, no chest pain, No shortness of breath, no recent travel, extremity swelling or tenderness, no history of excessive caffeine use, declined recreational drug use, or alcohol use. Fever, no chills. Related Data Home Medications ?Medication ?Instructions ?Recorded ?Confirmed multivitamin 1 tab PO DAILY 03/06/20 08/0 09/08 Allergies Allergy/AdvReac Type Severity Reaction Status Date / Time No Known Allergies Allergy Verified 01/27/25 10:22 Review of Systems 2 Review of Systems: all other systems are reviewed and are negative Constitutional: Reports as per HPI and Reports no additional constitutional complaints Eyes: Reports as per HPI and Reports no additional eye complaints Reports system reviewed and no additional complaints, except as documented Cardiovascular: Reports as per HPI and Reports no additional cardiovascular complaints Respiratory: Reports as per HPI and Reports no additional respiratory complaints Gastrointestinal: Reports as per HPI and Reports no additional gastrointestinal complaints Genitourinary: Reports no additional female genitourinary complaints Musculoskeletal: Reports no additional musculoskeletal complaints Skin/Breast: Reports system reviewed and no additional complaints, except as docu Psychiatric: Reports no additional psychiatric complaints Endocrine: Reports no additional endocrine complaints Hematologic/Lymphatic: Reports no additional hematologic/lymphatic complaints Allergic/Immunologic: Reports no additional allergic/immunologic complaints Reports system reviewed and no additional complaints, except as documented and Reports Abnormal speech present [facility] Past Medical History Medical History Preventative health care Calcified atheromatous plaque Renal cyst Umbilical hernia Epididymal cyst Cyst of skin Numerous moles Vitamin D deficiency Overweight with body mass index (BMI) of 27 to 27.9 in adult Loose stools Family history of cataracts Family history of breast cancer Right calf pain Right lower quadrant abdominal pain Establishing care with new doctor, encounter for Right testicular pain Overweight (BMI 25.0-29.9) Surgical History No pertinent past surgical history Family History Family History Father Breast cancer Mother Cataract Sister In good health Sister In good health Daughter In good health Maternal Grandmother Breast cancer Social History Social History Housing: House Alcohol intake: current Alcohol intake frequency: holidays/special occasions only Patient Tobacco Use Status: Former Tobacco user Tobacco use type: Cigarette Smoked in Last 30 Days: Yes e-Cigarette/Vaping Use: Currently Using Use of substances other than those prescribed or required for medical reasons: Yes Substance Use Type: Marijuana Substance Use Frequency: Occasionally Advance Directives: No Advance Directives Information Provided: Yes service: No Current occupational status: employed Cognitive needs: No Hearing needs: No Vision needs: Yes (rx glasses) Physical Exam 2 Vital Signs: Vital Signs: Last Vital Signs Temp 97.9 F 01/27/25 13:34 Pulse 60 01/27/25 13:34 Resp 18 01/27/25 13:34 BP 113/80 01/27/25 13:34 Pulse Ox 98 01/27/25 13:34 O2 Del Method Room Air 01/27/25 13:34 BMI result Body Mass Index 25.6 Vital signs have been reviewed and appear to be correct. Blood pressure elevated. Heart rate normal. Respiratory rate normal. Temperature normal. Oxygen saturation normal. Appearance: Alert. Oriented X3. No acute distress. Head: Normal external exam. Normocephalic. Atraumatic. No [place] signs noted. No raccoon eyes noted Eyes: PERRLA. EOMI. Conjunctiva and sclera normal. Eyelids normal. ENT: TM's Normal. Pharynx normal. Uvula midline. Moist mucous membranes. No trismus noted. No drooling noted. No muffled voice noted. Neck: Normal inspection. Neck supple. FROM. No adenopathy. Thyroid Normal. No meningeal signs. No neck mass noted. CVS: Normal heart rate and rhythm. Heart sound normal. No murmurs noted. Pulses normal throughout. Respiratory: No respiratory distress. Painless inspiration. Breath sounds normal. No wheezes/rales/rhonchi noted. Chest nontender. No accessory muscle usage noted or decreased air movement noted. Abdomen: Soft and nontender. Bowel sounds normal in all 4 quadrants. No distention noted. No organomegaly noted. No visible injury noted. Back: No CVA tenderness. Full range of motion noted. Skin: Skin warm and dry. Normal skin color. Normal skin turgor. No rashes/lesions/lacerations noted. Extremities: No lower extremity edema. Extremities exhibit normal range of motion. Extremities nontender. Neuro: Oriented X 3. Cranial nerve exam: II-XII are grossly intact No motor deficit. No sensory deficit. Reflexes normal. Course Reevaluation(s) Reevaluation #1: 44-year-old male otherwise healthy presented with palpitation that it resolved on its own, reassuring workup in the ED today with no clear etiology for patient palpitation will reassure the patient and discharge to with sewer and cutter finger buff material to consider cardiac monitoring if symptoms persist. Time: 14:00 Medical Decision Making Differential Diagnosis Differential Diagnoses: The differential diagnosis associated with the presentation includes ( ACS, pulmonary embolism, dysrhythmia, electrolyte derangement, severe anemia, ACS, substance induced palpitation.) Admission/Observation Consideration of admission/observation: Escalation of care including admission/observation considered Lab Data MDM Lab Attestation statement: I reviewed the patient's lab results. 01/27/25 10:27 01/27/25 10:27 Labs: Lab Results 01/27/25 01/27/25 Range/Units 10:27 12:30 WBC 6.7 (4.8-10.8) X10*3/uL RBC 5.07 (4.60-5.80) X10*6/uL Hgb 14.9 (14.0-18.0) g/dl Hct 44.4 (42.0-52.0) % MCV 87.6 (80.0-98.0) fL MCH 29.4 (27.0-33.0) pg MCHC 33.6 (31.0-36.0) g/dl RDW 12.5 (11.0-16.0) % Plt Count 251 (160-400) X10*3/uL MPV 9.2 L (9.4-12.4) fL Immature Gran % (Auto) 0.4 (0.0-0.4) % Neut % (Auto) 73.0 (45-73) % Lymph % (Auto) 18.3 L (20-40) % [place] % (Auto) 7.3 (2-11) % Eos % (Auto) 0.4 (0-4) % Baso % (Auto) 0.6 (0-2) % Lymph # (Auto) 1.2 (1.2-4.9) X10*3/uL [place] # (Auto) 0.5 (0.1-1.2) X10*3/uL Eos # (Auto) 0.0 (0.0-0.4) X10*3/uL Baso # (Auto) 0.0 (0.0-0.2) X10*3/uL Abs Immat Gran (auto) 0.03 (0.00-0.03) X10*3/uL Absolute Neuts (auto) 4.9 (2.0-8.3) x10*3/uL Absolute Nucleated RBC 0.000 (0.0-0.012) X10*3/uL Nucleated RBC % (auto) 0.0 (0.0-0.2) /100WBC PT 12.0 (11.2-13.5) SEC INR 1.0 (0.9-1.1) APTT 32.0 (26.7-34.1) SEC D-Dimer High Sensitivty < 150 NG/ML Sodium 143 (135-145) mmol/L Potassium 4.0 (3.3-5.1) mmol/L Chloride 109 H (96-108) mmol/L Carbon Dioxide 25 (22-29) mmol/L Anion Gap 13 (12-20) BUN 12 (9-16) mg/dL Creatinine 0.88 (0.5-1.4) mg/dL Estim Creat Clear Calc 117.5 Estimated GFR > 60 Random Glucose 96 (60-115) mg/dL Calcium 9.3 (8.4-10.2) mg/dL Magnesium 2.0 (1.6-2.6) mg/dL Total Bilirubin 0.6 (0.0-1.0) mg/dL AST 19 (5-37) U/L ALT 23 (0-40) U/L Alkaline Phosphatase 66 (39-117) U/L Troponin I High Sens < 2.7 < 2.7 (<3.5-35.0) ng/L NT-Pro-B Natriuret Pep 24.5 (<300) pg/mL Total Protein 7.3 (6.5-8.0) g/dL Albumin 5.2 H (3.5-5.0) g/dL Independent Interpretation I performed an independent interpretation of an: EKG ( Sinus tachycardia at 103, normal intervals, no ST-T changes, no significant change from prior EKG.) and Plain X-Ray ( Chest: No acute pathology.) Radiology Impression Discussion of test interpretation with radiology: I have reviewed the radiologist's reading. Discharge Plan Discharge Clinical Impression: Heart palpitations Patient Disposition: Home, Self-Care Instructions: Heart Palpitations (ED) Prescriptions: No Action multivitamin Tablet 1 tab PO DAILY Referrals: Deedee Nick PA-C [Primary Care Provider, Internal Medicine] Pancho Plummer MD [Physician, Cardiology] Stand Alone Forms: Work/School Release Print Language: [place]
[2025-01-27 12:06] LABS: D Dimer High Sensitivity < 150 NG/ML
[2025-01-27 12:15] LABS: Magnesium 2.0 mg/dL (1.6-2.6)
[2025-01-27 12:57] LABS: Troponin-I High Sensitivity < 2.7 ng/L (<3.5-35.0)
[2025-01-27 13:34] VITALS: BP 113/80; PULSE 60; RESP 18; TEMP 36.6; O2SAT 98
[2025-01-27 14:17] VITALS: BP 113/80; PULSE 60; RESP 18; TEMP 36.6; O2SAT 98
== END 2025-01-27 14:18 | disposition home or self-care (01) ==
PROVIDERS: Physician Assistant; Emergency Provider Emergency Medicine; PCP Physician Assistant Medical
DX: I49.9 Cardiac arrhythmia, unspecified (principal); R00.2 Palpitations; R06.82 Tachypnea, not elsewhere classified; Z79.899 Other long term (current) drug therapy
CPT/HCPCS: 36415; 71046; 80053; 83735; 83880; 84484; 85025; 85379; 85610; 85730; 93005; 99284; 99285

== ENCOUNTER → 2025-01-27 10:13 | Outpatient (BNV) | payer BC, SELFPAY | PROVIDERS: Emergency Provider Emergency Medicine; PCP Physician Assistant Medical; Visit Provider Internal Medicine Cardiovascular Disease | DX: R00.0 Tachycardia, unspecified (principal) | CPT/HCPCS: 93010 ==

== ENCOUNTER → 2025-01-27 10:21 | Outpatient (BNV) | payer BC, SELFPAY | PROVIDERS: PCP Physician Assistant Medical; Visit Provider Radiology Diagnostic Ultrasound | DX: R07.9 Chest pain, unspecified (principal) | CPT/HCPCS: 71046 ==

== ENCOUNTER 2025-01-31 15:00 | Outpatient (AMB) | payer BC, SELFPAY ==
--- NOTE | 2025-01-31 15:16 | MHC.PC.OV ---
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 He reported feeling palpitations and a sensation of his whole body pulsating while sitting at his desk at work. The episode was not associated with chest pain, shortness of breath, recent travel, extremity swelling, excessive caffeine use, recreational drugs, alcohol, fevers, or chills. The symptoms lasted for about 20 minutes before he left for the ED and resolved while he was in the ED. In the ED, an EKG revealed sinus tachycardia with a rate of 103 bpm, normal intervals, and no ST-T wave changes, which was similar to a prior EKG. A chest x-ray was normal, and lab work, including a CBC, D-dimer, sodium, potassium, and two troponins, were all within normal limits. His albumin was noted to be chronically 5.2. Since the ED visit, the patient has remained hyperaware of his heartbeat but has not experienced an episode as severe as the one on . He notes his heart races with activity like climbing stairs and during hot showers, with a heart rate of 143 bpm recorded during a shower. He denies any skipped beats, chest pain, dizziness, jaw pain, or nausea, but did have a stiff neck that he attributes to his sleeping position. The patient denies any family history of sudden or heart attacks before the age of 50 or 60. Social History - Substance Use: The patient denies use of recreational drugs or alcohol. - Caffeine Intake: He reports a daily intake of one medium iced coffee with one cream. - Nutrition: The patient reports he has historically not eaten breakfast and typically does not eat until midday, although he is trying to improve this. COUNT INCLUDES THE [facility] Medical History Heart palpitations Preventative health care Calcified atheromatous plaque Renal cyst Umbilical hernia Epididymal cyst Cyst of skin Numerous moles Vitamin D deficiency Overweight with body mass index (BMI) of 27 to 27.9 in adult Loose stools Family history of cataracts Family history of breast cancer Right calf pain Right lower quadrant abdominal pain Establishing care with new doctor, encounter for Right testicular pain Overweight (BMI 25.0-29.9) Surgical History No pertinent past surgical history Family History Father Breast cancer Mother Cataract Sister In good health Sister In good health Daughter In good health Maternal Grandmother Breast cancer Social History Housing: House Alcohol intake: current Alcohol intake frequency: holidays/special occasions only Patient Tobacco Use Status: Former Tobacco user Tobacco use type: Cigarette e-Cigarette/Vaping Use: Currently Using Substance Use Type: Marijuana service: No Current occupational status: employed Cognitive needs: No Hearing needs: No Vision needs: Yes (rx glasses) Questionnaire PHQ-9 Over the last 2 weeks, how often have you been bothered by any of the following problems? 1. Little interest or pleasure in doing things: not at all 2. Feeling down, depressed, or hopeless: not at all 3. Trouble falling or staying asleep, or sleeping too much: not at all 4. Feeling tired or having little energy: not at all 5. Poor appetite or overeating: not at all 6. Feeling bad about yourself - or that you are a failure or have let yourself or your family down: not at all 7. Trouble concentrating on things, such as reading the newspaper or watching television: not at all 8. Moving or speaking so slowly that other people could have noticed. Or the opposite - being so fidgety or restless that you have been moving around a lot more than usual: not at all 9. Thoughts that you would be better off or of hurting yourself in some way: not at all Total score: 0 Depression Screening Interpretation: Negative Depression Screening Done: Yes 91085 - PHQ-9 Billing: Yes Source: Developed by Drs. Marcin Roe, Heidy Rivera, Sean Ling and colleagues, with an educational fara from [employer]. Thrive Questionnaire Date Thrive assessed: 08/25/24 I am a: Patient What is your living situation today?: I have a steady place to live Within the past 12 months, did the food you bought not last and you didn't have the money to get more?: Never true Within the past 12 months, did you worry whether your food would run out before you got money to buy more?: Never true Do you have trouble paying for medicines?: No Do you have trouble getting transportation to medical appointments?: No Do you have trouble paying your heating and electricity bill?: No Do you have trouble taking care of your child, family member or friend?: No Do you have trouble with day-to-day activities such as bathing, preparing meals, shopping, managing finances, etc.?: No Are you currently unemployed and looking for a job?: No Are you interested in more education?: No Please select the resources that you would like help with: None THRIVE Score: 0 AUDIT C Alcohol Use Questionnaire (AUDIT-C) 1. How often do you have a drink containing alcohol?: 2-4 times a month 2. How many drinks containing alcohol do you have on a typical day when you are drinking?: 1 or 2 3. How often do you have six or more drinks on one occasion?: Never Total Score: 2 Score Reviewed/Action Taken: No SHAVONNE-7 AMB Questionnaire SHAVONNE-7 Date SHAVONNE - 7 assessed: 08/25/24 Feeling nervous, anxious, or on edge: 0 = Not at all Not being able to stop or control worryin = Not at all Worrying too much about different things: 0 = Not at all Trouble relaxin = Not at all Being so restless that it is hard to sit still: 0 = Not at all Becoming easily annoyed or irritable: 0 = Not at all Feeling afraid as if something awful might happen: 0 = Not at all Total SHAVONNE-7 score (0-4 normal; 5-9 mild; 10-14 moderate; 15-21 severe): 0 Source: Developed by Drs. Marcin Roe, Heidy Rivera, Sean Ling and colleagues, with an educational fara from [employer]. SHAVONNE-7 Assessment Billing SHAVONNE-7 Assessment Tool: SHAVONNE-7 Assessment 14724 Review of Systems Const Details: - Constitutional: Denies fevers or chills. - Cardiovascular: Reports palpitations, a racing heart, and a sensation of his whole body pulsating. Denies chest pain or extremity swelling. - Respiratory: Denies shortness of breath. - Neurological: Denies dizziness. - Musculoskeletal: Reports a stiff neck. Denies jaw pain. - Gastrointestinal: Denies nausea. All systems reviewed & are unremarkable except as noted in HPI and below Physical exam (Primary Care) Vital Signs: Last Vital Signs Temp 97.9 F 01/31/25 15:17 Pulse 72 01/31/25 15:17 Resp 14 01/31/25 15:17 BP 129/78 01/31/25 15:17 Pulse Ox 99 01/31/25 15:17 Oxygen Delivery Method Room Air 01/31/25 15:17 Care Plan Goal for BP management: <140/90 at Goal BMI result Body Mass Index 26.2 BMI Assessment/Plan discussion: High BMI High, discussed plan: lifestyle, weight reduction, dietary, physical activity, alcohol moderation and other Tobacco/Smoking Status: Tobacco use Status Tobacco use date assessed 10/20/24 01/31/25 15:21 Patient Tobacco Use Status Former Tobacco user 01/31/25 15:21 Tobacco use type Cigarette 01/31/25 15:21 e-Cigarette/Vaping Use Currently Using 01/31/25 15:21 PHQ-9: PHQ-9 Score PHQ-9: Total score 0 01/31/25 15:21 Depression Screening Interpretation: Negative Thrive Assessment: Date of Thrive Assessment Date Thrive assessed 08/25/24 01/31/25 15:21 Const Other: Appearance: Alert. Oriented X3. No acute distress. Head: Normal external exam. Normocephalic. Atraumatic. Eyes: Pupils are equal, round, and reactive to light. Extraocular movements intact. Conjunctiva and sclera normal. Eyelids normal. Throat: Pharynx normal. Uvula midline. Moist mucous membranes. Neck: Normal inspection. Neck supple. Full range of motion. Cardiovascular: Normal sinus rhythm. Normal heart rhythm. Heart sound normal. No murmurs noted. Pulses normal throughout. Respiratory: No respiratory distress. Painless inspiration. Breath sounds normal. No wheezes/rales/rhonchi noted. Chest nontender. No accessory muscle usage noted or decreased air movement noted. Back: Full range of motion noted. Skin: Skin warm and dry. Normal skin color. Normal skin turgor. No rashes/lesions/lacerations noted. Extremities: Extremities exhibit normal range of motion. Neuro: Oriented X 3. No motor deficit. No sensory deficit. Reflexes normal. Results Reviewed Results Reviewed: - EKG: Sinus tachycardia with a heart rate of 103 bpm, normal intervals, no ST-T wave changes, similar to prior EKG. - Imaging: Chest x-ray was normal. - Labs: CBC was normal. D-dimer was negative. Sodium and potassium were normal. Two troponin tests were negative. Albumin is chronically 5.2. Coding Level of Care Code Est Pt Level 4 (85122) Complex EM visit Add On G2211 Diagnoses Heart palpitations R00.2 Additional Codes SHAVONNE-7 Assessment Billing - SHAVONNE-7 Assessment Tool: SHAVONNE-7 Assessment 81601 ([id number]) PHQ-9 - 74630 - PHQ-9 Billing: Yes ([id number]) Assessment & Plan Assessment & Plan (1) Heart palpitations: Code(s): R00.2 - Palpitations Category: Medical Plan: To further evaluate the patient's palpitations, a comprehensive cardiac workup will be initiated. A 3-day Holter monitor has been ordered to assess for any arrhythmias, such as skipped beats, extra beats, or abnormal rhythms. Additionally, an order has been placed for a regular stress test, a chemical stress test, and an ultrasound of the heart (echocardiogram) to further investigate cardiac function and structure. The patient is advised to keep a diary to log symptoms and correlate them with diet, stress, or other potential triggers. Medication will be deferred until diagnostic results are available. If any of the diagnostic tests return abnormal results, a referral to cardiology will be made. A follow-up appointment is scheduled for two months to review the results, and the patient was instructed to call if he is not contacted for test scheduling within 30 days. Plan Plan Patient was informed and verbally consented to the use of an ambient scribe for clinic note documentation during this visit. 1. Palpitations To further evaluate the patient's palpitations, a comprehensive cardiac workup will be initiated. A 3-day Holter monitor has been ordered to assess for any arrhythmias, such as skipped beats, extra beats, or abnormal rhythms. Additionally, an order has been placed for a regular stress test, a chemical stress test, and an ultrasound of the heart (echocardiogram) to further investigate cardiac function and structure. The patient is advised to keep a diary to log symptoms and correlate them with diet, stress, or other potential triggers. Medication will be deferred until diagnostic results are available. If any of the diagnostic tests return abnormal results, a referral to cardiology will be made. A follow-up appointment is scheduled for two months to review the results, and the patient was instructed to call if he is not contacted for test scheduling within 30 days. I discussed with the patient the plan for further cardiac evaluation following his recent emergency department visit for palpitations. I explained that I have ordered a 3-day Holter monitor, a regular stress test, a chemical stress test, and an ultrasound of his heart to investigate the cause of his symptoms. I informed him that a referral to a epic application coordinator will be made if any of these tests are abnormal. We agreed to hold off on initiating any new medications until we have more information from the diagnostic tests, which aligns with his preference to avoid medication if not necessary. I instructed the patient to maintain a diary to track his symptoms, food and drink intake, and stress levels to help identify potential triggers. I provided strict return precautions, advising him to go to the emergency room immediately for any chest pain, jaw pain, nausea, or tingling in one arm. We scheduled a follow-up appointment in two months to review all results, and I advised him to call my office if he has not been contacted to schedule his tests within 30 days to ensure there are no delays in his care. Orders: Orders ECG 3 day holter monitor Today R00.2 - Palpitations CA echo transthoracic complete Today I70.90 - Unspecified atherosclerosis, R00.2 - Palpitations CA stress test Today I70.90 - Unspecified atherosclerosis, R00.2 - Palpitations NM cardiolite stress test Today I70.90 - Unspecified atherosclerosis, R00.2 - Palpitations Patient Instructions: - Go to the nearest Emergency Room (ER) right away if you experience chest pain, jaw pain, nausea, or tingling in one arm. - You will be called to schedule several heart tests: a portable heart monitor to wear for three days, a stress test on a treadmill, and an ultrasound of your heart. - If you do not receive a call to schedule these tests within 30 days, please call our office. - Keep a daily log of what you are eating and drinking, your stress levels, and any time you feel your heart racing or pounding. - We have scheduled a follow-up appointment in about two months to review your test results. - Please call us sooner if your symptoms get worse or if you have any questions.
[2025-01-31 15:17] VITALS: BP 129/78; PULSE 72; RESP 14; TEMP 36.6; O2SAT 99; BMI 26.2
== END 2025-01-31 15:35 | disposition home or self-care (01) ==
LOC: HO.HMCSH 15:00
PROVIDERS: PCP Physician Assistant Medical; Visit Provider Physician Assistant Medical
DX: R00.2 Palpitations (principal)

== ENCOUNTER → 2025-01-31 15:00 | Outpatient (BNVA) | payer BC, SELFPAY | PROVIDERS: PCP Physician Assistant Medical; Visit Provider Physician Assistant Medical | DX: R00.2 Palpitations (principal); I70.90 Unspecified atherosclerosis | CPT/HCPCS: 96127 ==

== ENCOUNTER → 2025-03-02 07:41 | Outpatient (REF) | payer BC, SELFPAY ==
--- NOTE | 2025-03-02 07:43 | CA_ITS ---
Transthoracic Echocardiogram Patient (Last, First, Middle): Vidal Nixon, Gender: Male Date of : 1980 Age: 44 Procedure Date: 03/02/2025 Procedure Type: Transthoracic Echocardiogram Location: OP Height: 180.34 cm Weight: 85.28 kg BSA: 2.05 m2 Heart Rate: bpm BP: 128 / 80 mmHg Card Puncher: TO Referring MD: Deedee Nick PA-C Head Nurse: Howie Horn MD Symptoms: R00.2 - Palpitations Study Quality: Adequate ECG Rhythm: Sinus Conclusions: - 1. Normal LV ejection fraction 55-60% 2. Cardiac valvular Dopplers within normal limits 3. Mildly dilated ascending aorta 3.9 cm 4. Normal RV systolic pressure 5. No pericardial effusion Findings Left Ventricle Normal left ventricular size, thickness, and systolic function. The visually estimated ejection fraction is between 55-60%. Spectral Doppler is indicative of a normal filling pattern. Right Ventricle Normal right ventricular cavity size and systolic function. Atria Both atria are normal in size. There is lipomatous hypertrophy of the interatrial septum. There is no evidence of interatrial shunt. Aortic Valve Normal aortic valve structure and function. There is no aortic valve stenosis. There is no aortic valve regurgitation. Mitral Valve There is mild anterior and posterior mitral leaflet thickening. There is trace mitral valve regurgitation. There is no mitral valve stenosis. Pulmonic Valve The pulmonic valve is likely normal. There is trace pulmonic valve regurgitation. Tricuspid Valve Normal tricuspid valve structure. There is trace tricuspid valve regurgitation. The right ventricular systolic pressure is normal. The right ventricular systolic pressure is 25 mmHg. Normal right atrial pressure. There is no evidence of pulmonary hypertension. Great Vessels The pulmonary artery was not well visualized. There is mild dilatation of the ascending aorta measuring 3.90 cm. Venous The inferior vena cava is normal in size and collapses greater than 50% with inspiration. Pericardium/Pleural There is no evidence of pericardial effusion. Prior Study Comparison No prior study available for comparison. Measurements 2D Linear Measurements IVSd: 0.94 0.6-0.9/0.6-1.0 cm LVIDd: 4.98 3.9-5.3/4.2-5.9 cm LVIDd Index: 2.43 2.4-3.2/2.2-3.1 cm/m2 LVIDs: 3.23 2.0-3.6 cm LVPWd: 0.88 0.7-1.1 cm LA Diam: 3.40 2.7-3.8/3.0-4.0 cm LAIDs Index: 1.66 1.5-2.3 cm/m2 LV Mass: 199.28 67-162/88-224 g LV Mass Index: 97.21 43-95/49-115 g/m2 LVOT Diam: 2.60 3.0+(-)1.3 cm 2D Systolic Function EF 4C: 57.70 >55% EF 2C: 57.10 >55% EF BiP: 57.10 >55% Mitral Valve MV Pk E: 0.63 MV PK A: 0.30 MV Decel Time: 211.00 E/A: 2.10 E'Lateral: 12.20 E'Medial: 8.27 E/E' Med: 7.60 E/E' Lat: 5.20 PHT: 62.00 MVA PHT: 3.55 Decel Tompkins: 2.98 Aortic Valve AoV Pk Roddy: 1.12 AoV Mn Roddy: 0.74 AoV VTI: 0.24 AoV Pk Grad: 5.00 Aov Mn Grad: 2.00 BAILEY Cont.VTI: 4.43 LVOT LVOT Pk Roddy: 0.92 LVOT Mn Roddy: 0.63 LVOT VTI: 0.20 LVOT Pk Grad: 3.00 LVOT Mn Grad: 2.00 LVOT Diam: 2.60 LVOT Area: 5.31 Diastolic Function MV Pk E: 0.63 MV Pk A: 0.30 E/A: 2.10 E'Medial: 8.27 E/E' Med: 7.60 E' Laterial: 12.20 E/E' Lat: 5.20 Right Ventricle TAPSE (mm): 21.00 TVS' Roddy: 11.40 Tricuspid Valve TR Pk Roddy: 2.05 TR Pk Grad: 17.00 RA Press: 8.00 RVSP: 25.00 Great Vessels Aorta Sinus of Valsalva: 3.85 2.0-3.[address] Ridge: 3.41 1.7-3.4 cm Ao Asc: 3.90 2.1-3.4 cm Ao Arch: 3.20 Updated in Other Vendor System with Status of Final Howie Horn MD electronically signed on 03/02/2025 1:05:52 PM with status of Final
== END ==
LOC: HO.CARD 07:41
PROVIDERS: PCP Physician Assistant Medical; Visit Provider Physician Assistant Medical
DX: R00.2 Palpitations (principal); I70.90 Unspecified atherosclerosis
CPT/HCPCS: 93242; 93306

== ENCOUNTER → 2025-03-02 07:43 | Outpatient (BNV) | payer BC, SELFPAY | PROVIDERS: PCP Physician Assistant Medical; Visit Provider Internal Medicine Cardiovascular Disease | DX: I77.810 Thoracic aortic ectasia (principal) | CPT/HCPCS: 93306 ==

== ENCOUNTER → 2025-03-14 08:14 | Outpatient (REF) | payer BC, SELFPAY ==
--- NOTE | ~2025-03-14 | NM_ITS ---
EXERCISE MYOCARDIAL PERFUSION STUDY INDICATION: Coronary artery disease TECHNIQUE: The patient was brought in for an exercise perfusion study on 03/14/2025. Patient performed exercise as per Matthew protocol and was injected 30 mCi of sestamibi once target heart rate was achieved. Images were obtained using the SPECT gamma camera interlaced with the gating device. Images were obtained in supine position. Resting perfusion study was performed on 03/15/2025. Patient was administered 30 mCi of sestamibi intravenously at rest. Images were then obtained in supine position. Total DLP 76 mGy-cm. Images were processed with the software and compared side to side in short axis, horizontal long axis and vertical long axis views. FINDINGS: Raw aquisition reviewed. The stress perfusion study showed decreased tracer uptake in the basal part of inferior wall. There is improvement with CT attenuation correction and hence could indicate diaphragmatic attenuation artifact. The gated study shows normal LV systolic function with calculated LVEF of 67%. LV cavity is normal in size. The gated study shows normal wall thickening and contraction of segments. Resting study shows no significant perfusion abnormality. Gating at rest reveals normal wall motion with ejection fraction at 73%. The findings are consistent with reversible basal inferior defect, possibly artifactual. NM/NM cardiolite stress test IMPRESSION: 1. Myocardial perfusion imaging study shows no clear evidence of ischemia or infarction. 2. Gated LVEF is 67% during stress and > 70% during rest. 3. Transient ischemic dilatation not present. EKG component of the test reported separately. Electronically signed by: Pancho Plummer MD 03/15/2025 04:16 PM [facility]
--- NOTE | 2025-03-14 08:16 | CA_ITS ---
Acquisition Time: 2025-03-14 08:45:37 Total Exercise Time: 00:07:00 Test Indications: Palpitations/TACHYCARDIA Medications: ASA Protocol: VILMA Max HR: 164 BPM 93% of Pred: 176 BPM Max BP: 134/74 mmHG Max Work Load: 8.5 METS Exercise stress test with exercise 7 mins of Vilma Protocol, achieving 92% MPHR, with reports of mild SOB, no chest pain, with isolated PVCs, with normotensive response to exercise. Without any EKG changes meeting criteria for ischemia. In recovery, breathing improved and pt feeling back to baseline. Nuclear images pending. Test reviewed with Dr. Plummer. Referred By: Deedee Nick Electronically Signed By: Edvin Hernandez
--- OUTSIDE RECORDS SUMMARY | 2025-03-14 08:17 | XMS_ITS ---
Author Organization Unknown ENCOUNTERS Encounter Performer Location Date Diagnosis Diagnosis Status Emergency [address] [address] [id number] MELITA Pre Admit Generic ED Physician [address] [address] [phone] *Note: Encounters from your own facility or health system may be excluded. Allergies, Adverse Reactions, Alerts Allergen Type Severity Identification Date Medications Name Date Quantity Days Supplied GPI Number
== END ==
LOC: HO.CARD 08:14
PROVIDERS: PCP Physician Assistant Medical; Visit Provider Physician Assistant Medical
DX: R00.2 Palpitations (principal); I70.90 Unspecified atherosclerosis
CPT/HCPCS: 78452; 93017; A9500

== ENCOUNTER → 2025-03-14 08:16 | Outpatient (BNV) | payer BC, SELFPAY | PROVIDERS: PCP Physician Assistant Medical | DX: I49.3 Ventricular premature depolarization (principal); R06.02 Shortness of breath | CPT/HCPCS: 78452; 93016; 93018 ==